=== PATIENT | male | born 1960 | race Caucasian/White ===

== ENCOUNTER 2020-10-16 05:48 | Day surgery (SDC) | payer BC, OTHER ==
[2020-10-12 12:16] VITALS: BMI 23.7
[~2020-10-16 05:48] MED LIST: ACETAMINOPHEN TAB 500 MG TAB PO PRN; DEXAMETHASONE SOD PHOSPHATE 4 MG/ML 1 ML VIAL IV ONE; MIDAZOLAM 2 MG/2 ML VIAL IV PRN; ONDANSETRON 4 MG/2 ML VIAL IVP ONE; SODIUM CHLORIDE 0.9% 100 ML BAG ONE; TRANEXAMIC ACID 1,000 MG/10 ML VIAL ONE
[2020-10-16] MEDS ORDERED: HEPARIN SODIUM,PORCINE 5,000 UNIT/ML 1 ML VIAL SQ PRN (06:00)
[2020-10-16 06:28] VITALS: TEMP 97.2
[2020-10-16] MEDS: LACTATED RINGERS 1,000 ML IV SCH ×2 (06:42→07:46)
[2020-10-16] MEDS ORDERED: fentaNYL (PF) 50 MCG/ML 2 ML AMP IVP PRN (07:00)
[2020-10-16] MEDS ORDERED: fentaNYL (PF) 50 MCG/ML 2 ML AMP IV PRN (07:00)
[2020-10-16] MEDS ORDERED: NEOSTIGMINE 1 MG/ML 10 ML VIAL ONE (07:49)
[2020-10-16] MEDS ORDERED: fentaNYL (PF) 50 MCG/ML 2 ML AMP ONE (07:49)
[2020-10-16] MEDS ORDERED: MIDAZOLAM 2 MG/2 ML VIAL ONE (07:49)
[2020-10-16] MEDS ORDERED: LIDOCAINE 1% INJ 10MG/ML (20 ML MDV) ONE (07:49)
[2020-10-16] MEDS ORDERED: GLYCOPYRROLATE 0.2 MG/ML 2 ML VIAL ONE (07:49)
[2020-10-16] MEDS ORDERED: ROCURONIUM 10 MG/ML (5 ML VIAL) IV ONE (07:49)
[2020-10-16] MEDS ORDERED: PROPOFOL 10 MG/ML 20 ML VIAL IV ONE (07:49)
[2020-10-16] MEDS ORDERED: SUCCINYLCHOLINE CHLORIDE 100 MG/5 ML SYR IV ONE (07:49)
[2020-10-16] MEDS ORDERED: BUPIVACAINE (PF) 0.25% 30 ML VIAL SQ ONE (08:09)
[2020-10-16] MEDS ORDERED: LACTATED RINGERS 1,000 ML IV ONE (09:16)
--- NOTE | 2020-10-16 09:36 | P.OP ---
Date of Procedure: 10/16/20 Procedure(s) Performed: PREOPERATIVE DIAGNOSIS: Left inguinal hernia POSTOPERATIVE DIAGNOSIS: Same, small umbilical hernia PROCEDURE: Laparoscopic repair left inguinal hernia with the da Theo robot assistance with mesh, repair umbilical hernia SURGEON: Sp EBL: Minimal ANESTHESIA: General COMPLICATIONS: None OPERATIVE PROCEDURE: Patient was placed in the operating table in the supine position. The patient was placed under general anesthesia. The abdomen was prepped and draped in usual sterile fashion. A small curvilinear supraumbilical incision was made. The fascia was retracted anteriorly with Alex forceps. The Veress needle was inserted. The saline drop test was normal. Insufflation took place to 15 mmHg. An 8 mm trocar was placed into the peritoneal cavity. 2 additional 8 mm trochars were placed in the right upper quadrant and left upper quadrant under visualization. The robotic arms were then brought in and docked into place. The fenestrated bipolar was used in the left arm and the laparoscopic naresh was utilized in the right arm. A 30 8 mm scope was used in the up position. The peritoneal cavity was inspected. The patient had an obvious indirect hernia on the left-hand side. This was medium sized. No hernia on the right was noted. The peritoneum was incised in a horizontal fashion cephalad to the internal inguinal ring. Following that careful dissection of the preperitoneal space took place. This took place using both electrocautery, sharp dissection but primarily blunt dissection. Visualization of the pubic tubercle and Cheo's ligament took place medially. Full dissection took place laterally as well. The hernia sac was fully dissected. Once we had adequate space the 15 x 10 progrip mesh was advanced into the preperitoneal space and flattened out appropriately to cover all potential hernia sites. No sutures were used. The peritoneal defect was then closed using a locking 2-0 VLok suture. The inverted hernia sac was incorporated into the peritoneal closure. There was a small defect in the peritoneum was closed using a short running 3-0 Vicryl stitch. The pneumoperitoneum was then evacuated. The patient had a small umbilical hernia present as well. There was a less than 1 cm piece of fat coming through a small defect at the base of the umbilicus. This was excised. The defect was then closed using a short running 0 Vicryl suture. The skin of all 3 sites was closed using a 4-0 Monocryl stitch. Skin glue was then applied. DISPOSITION: Stable to recovery room
[2020-10-16] MEDS: HYDROmorphone 0.5 MG/0.5 ML SYRINGE IVP PRN ×2 (09:50→09:55)
[2020-10-16 09:58] VITALS: RESP 16
[2020-10-16] MEDS ORDERED: ACETAMINOPHEN TAB 325 MG TAB PO SCH (12:00)
[2020-10-16] MEDS ORDERED: IBUPROFEN 600 MG TAB PO SCH (12:26)
[2020-10-16 12:48] VITALS: BP 135/79; PULSE 92
== END 2020-10-16 13:31 | disposition home or self-care (01) ==
LOC: OR 05:48
PROVIDERS: ATTEND Surgery
DX: K40.90 Unilateral inguinal hernia, without obstruction or gangrene, not specified as recurrent (principal); K42.9 Umbilical hernia without obstruction or gangrene; Z98.890 Other specified postprocedural states; Z82.61 Family history of arthritis
CPT/HCPCS: 49650; 49652; S2900

== ENCOUNTER 2021-06-12 07:54 | Day surgery (SDC) | payer BC ==
[2021-06-07 15:01] VITALS: BMI 23.7
[~2021-06-12 07:54] MED LIST changes: -ACETAMINOPHEN TAB 500 MG TAB PO PRN; -DEXAMETHASONE SOD PHOSPHATE 4 MG/ML 1 ML VIAL IV ONE; +LACTATED RINGERS 1,000 ML IV SCH; +LIDOCAINE 1% (10MG/ML) FOR IV START INTRADERMA PRN; -MIDAZOLAM 2 MG/2 ML VIAL IV PRN; -ONDANSETRON 4 MG/2 ML VIAL IVP ONE; -SODIUM CHLORIDE 0.9% 100 ML BAG ONE; -TRANEXAMIC ACID 1,000 MG/10 ML VIAL ONE
[2021-06-12 08:28] VITALS: TEMP 96.4
[2021-06-12] MEDS ORDERED: PROPOFOL 10 MG/ML 20 ML VIAL IV ONE (08:55)
[2021-06-12] MEDS ORDERED: LIDOCAINE 1% INJ 10MG/ML (20 ML MDV) ONE (08:55)
--- NOTE | 2021-06-12 09:01 | P.GSHP ---
History of Present Illness H&P Date: 06/12/21 Chief Complaint: Colon cancer screening 60-year-old male here today for colonoscopy. Last colonoscopy 6 years ago. Patient with family history of colon cancer in his aunt. No bowel complaints. No history of polyps. Past Medical History Past Medical History: No Reported History Additional Past Medical History / Comment(s): "mild constipation", History of Any Multi-Drug Resistant Organisms: None Reported Past Surgical History: Hernia Repair, Orthopedic Surgery Additional Past Surgical History / Comment(s): lt carpal tunnel, arthroscopy knee, colonoscopy, heel surgery to remove bone spur Past Anesthesia/Blood Transfusion Reactions: No Reported Reaction Smoking Status: Never smoker - Past Family History Father Family Medical History: Cancer Additional Family Medical History / Comment(s): lung Mother Family Medical History: Cancer Additional Family Medical History / Comment(s): breast Medications and Allergies Home Medications Medication Instructions Recorded Confirmed Type Stool Softner And Laxative Com 1 tab PO HS 06/07/21 06/07/21 History Vitamin Smoothy 1 applicate PO DAILY 06/07/21 06/07/21 History Allergies Allergy/AdvReac Type Severity Reaction Status Date / Time No Known Allergies Allergy Verified 06/07/21 14:53 Surgical - Exam Vital Signs Temp Pulse Resp BP Pulse Ox 96.4 F L 85 18 124/79 97 06/12/21 08:27 06/12/21 08:27 06/12/21 08:27 06/12/21 08:27 06/12/21 08:27 Physical exam: General: Well-developed, well-nourished HEENT: Normocephalic, sclerae nonicteric Abdomen: Nontender, nondistended Extremities: No edema Neuro: Alert and oriented Assessment and Plan (1) Colon cancer screening Narrative/Plan: Will proceed with colonoscopy at this time Current Visit: Yes Status: Acute Code(s): Z12.11 - ENCOUNTER FOR SCREENING FOR MALIGNANT NEOPLASM OF COLON SNOMED Code(s): 654451175
--- NOTE | 2021-06-12 09:21 | P.PCN ---
Date of Procedure: 06/12/21 Procedure(s) Performed: PREOPERATIVE DIAGNOSIS: Colon cancer screening POSTOPERATIVE DIAGNOSIS: Normal exam PROCEDURE: Colonoscopy ANESTHESIA: MAC SURGEON: William Snowden M.D. SPECIMENS: None ENDOSCOPIC PROCEDURE: The patient was placed on the endoscopy table in the left decubitus position. The Olympus colonoscope was inserted into the anus and passed under direct visualization to the base of the cecum. The appendiceal orifice was visualized. From that point the scope was slowly withdrawn inspecti ng all surfaces carefully. There were no neoplastic inflammatory or polypoid lesions throughout the cecum, ascending, transverse, descending, sigmoid and rectum. There was no visible diverticulosis noted. Digital rectal examination was normal. The patient was taken to the recovery room in stable condition per anesthesia guidelines. RECOMMENDATIONS: Resume diet. Follow colonoscopy in 10 years.
[2021-06-12 09:46] VITALS: BP 122/79; PULSE 72; RESP 20
== END 2021-06-12 10:04 | disposition home or self-care (01) ==
LOC: ORWHC2ENDO 07:54
PROVIDERS: ATTEND Surgery
DX: Z12.11 Encounter for screening for malignant neoplasm of colon (principal); K59.00 Constipation, unspecified; Z80.0 Family history of malignant neoplasm of digestive organs; Z98.890 Other specified postprocedural states; Z80.1 Family history of malignant neoplasm of trachea, bronchus and lung; Z80.3 Family history of malignant neoplasm of breast
CPT/HCPCS: J2001; J2704; G0121; 45378

== ENCOUNTER → 2023-08-21 | Outpatient (CLI) | payer BC | END | disposition home or self-care (01) | LOC: LABWHC1 13:42 | PROVIDERS: ATTEND Urology | DX: R97.20 Elevated prostate specific antigen [PSA] (principal) | CPT/HCPCS: 36415; 84153 ==

== ENCOUNTER → 2024-03-24 | Outpatient (CLI) | payer BC ==
--- NOTE | 2024-03-24 14:37 | US ---
EXAMINATION TYPE: US carotid duplex BILAT DATE OF EXAM: 03/24/2024 COMPARISON: NONE CLINICAL INDICATION: Male, 63 years old with history of E782, R9431; Hx High cholesterol; patient den ies any other signs, symptoms, or relevant history TECHNIQUE: Carotid duplex ultrasound examination. Indirect Doppler criteria was utilized. FINDINGS: EXAM MEASUREMENTS: RIGHT: Peak Systolic Velocity (PSV) cm/sec ----- Right CCA: 100 ----- Right ICA: 129 ----- Right ECA: 108 ICA/CCA ratio: 1.3 RIGHT: End Diastole cm/sec ----- Right CCA: 28 ----- Right ICA: 32 ----- Right ECA: 18 LEFT: Peak Systolic Velocity (PSV) cm/sec ----- Left CCA: 106 ----- Left ICA: 100 ----- Left ECA: 119 ICA/CCA ratio: 0.9 LEFT: End Diastole cm/sec ----- Left CCA: 31 ----- Left ICA: 31 ----- Left ECA: 25 VERTEBRALS (direction of flow): Right Vertebral: Antegrade Left Vertebral: Antegrade Rhythm: Normal EMERGENCY MEDICINE MEDICAL DIRECTOR NOTES: Unremarkable exam IMPRESSION: Less than 50% stenosis of bilateral carotid bifurcations by peak systolic velocity and ratio. Criteria for Assigning % of Stenosis / Diameter reduction (Estimation based on the indirect measurements of the internal carotid artery velocities (ICA PSV). 1. Normal (no stenosis)=ICA PSV < 125 cm/s: ratio < 2.0: ICA EDV<40 cm/s. 2. Less than 50% stenosis=ICA PSV < 125 cm/s: ratio < 2.0: ICA EDV<40 cm/s. 3. 50 to 69% stenosis=ICA PSV of 125 to 230 cm/s: ration 2.0 ? 4.0: ICA EDV 40-100 cm/s. 4. Greater than 70% stenosis to near occlusion= ICA PSV > 230 cm/s: ratio > 4.0: ICA EDV > 100 cm/s. 5. Near occlusion= ICA PSV velocities may be low or undetectable: variable ratio and ICA EDV. 6. Total occlusion=unable to detect flow.
--- NOTE | 2024-03-25 11:17 | CA ---
Transthoracic Echo Report Name: Frederick Cisneros Age: 63 Gender: M : 1960 Exam Date: 03/24/2024 12:51 Exam Location: [facility] Ht (in): 71 Wt (lb): 165 Ordering Physician: Jeremy Perry MD Attending/Referring Phys: JOHN, [facility] Intern Beverley Baeza RDCS Procedure CPT: Indications: R94.31 ABNORMAL ELECTROCARDIOGRAM; E78.2 MIXED HYP Cardiac Hx: Technical Quality: Fair Contrast 1: Total Dose (mL): Contrast 2: Total Dose (mL): MEASUREMENTS (Male / Female) Normal Values 2D ECHO LV Diastolic Diameter PLAX 4.1 cm 4.2 - 5.9 / 3.9 - 5.3 cm LV Systolic Diameter PLAX 2.6 cm IVS Diastolic Thickness 0.8 cm 0.6 - 1.0 / 0.6 - 0.9 cm LVPW Diastolic Thickness 0.9 cm 0.6 - 1.0 / 0.6 - 0.9 cm LV Relative Wall Thickness 0.4 LVOT Diameter 2.1 cm LV Diastolic Volume MOD BP 70.8 cm??? 67 - 155 / 56 - 104 cm??? LV Systolic Volume MOD BP 26.2 cm??? 22 - 58 / 19 - 49 cm??? LV Ejection Fraction MOD BP 62.9 % >= 55 % LV Cardiac Index MOD BP 1702.6 cm???/min???m??? LV Diastolic Volume MOD 4C 84.3 cm??? LV Systolic Volume MOD 4C 31.7 cm??? LV Ejection Fraction MOD 4C 62.4 % LV Cardiac Index MOD 4C 2007.5 cm???/min???m??? LV Diastolic Length 4C 8.7 cm LV Systolic Length 4C 8.0 cm LV Diastolic Volume MOD 2C 56.5 cm??? LV Systolic Volume MOD 2C 19.3 cm??? LV Ejection Fraction MOD 2C 65.9 % LV Cardiac Index MOD 2C 1421.0 cm???/min???m??? LV Diastolic Length 2C 8.2 cm LV Systolic Length 2C 7.0 cm LA Volume 26.8 cm??? 18 - 58 / 22 - 52 cm??? LA Volume Index 13.8 cm???/m??? 16 - 28 cm???/m??? DOPPLER AV Peak Velocity 100.5 cm/s AV Peak Gradient 4.0 mmHg AV Mean Velocity 73.9 cm/s AV Mean Gradient 2.4 mmHg AV Velocity Time Integral 20.1 cm LVOT Peak Velocity 110.9 cm/s LVOT Peak Gradient 4.9 mmHg LVOT Velocity Time Integral 22.8 cm LVOT Stroke Volume 78.2 cm??? LVOT Stroke Volume Index 40.2 ml/m??? LVOT Cardiac Index 2987.2 cm???/min???m??? AV Area Cont Eq vti 3.9 cm??? AV Area Cont Eq pk 3.8 cm??? MV Area PHT 3.3 cm??? Mitral E Point Velocity 53.2 cm/s Mitral A Point Velocity 52.4 cm/s Mitral E to A Ratio 1.0 MV Deceleration Time 229.8 ms FINDINGS Left Ventricle Left ventricular ejection fraction is estimated at 60 %. Left ventricular cavity size normal. Left ventricular wall thickness normal. No obvious regional wall motion abnormalities. Right Ventricle Normal right ventricular size and function. Unable to estimate the right ventricular systolic pressure. Right Atrium Normal right atrial size. Left Atrium Normal left atrial size. Mitral Valve Structurally normal mitral valve. No mitral stenosis, regurgitation or prolapse. Aortic Valve Trileaflet aortic valve. No aortic valve stenosis or regurgitation. Tricuspid Valve Structurally normal tricuspid valve. No tricuspid stenosis. No tricuspid regurgitation. Pulmonic Valve Pulmonic valve not well visualized. Pericardium No pericardial effusion. Aorta Aortic annulus normal. CONCLUSIONS . Normal LV size and systolic function. No significant abnormality on the Doppler exam. No pericardial effusion Previewed by: Dr. Hernán Ron MD (Electronically Signed) Final Date: 25 March 2024 11:17
== END | disposition home or self-care (01) ==
LOC: RADECHMAIN 12:45
PROVIDERS: ATTEND Internal Medicine
DX: R94.31 Abnormal electrocardiogram [ECG] [EKG] (principal); E78.2 Mixed hyperlipidemia; E78.00 Pure hypercholesterolemia, unspecified
CPT/HCPCS: 93306; 93880

== ENCOUNTER → 2024-03-25 | Outpatient (CLI) | payer BC | END | disposition home or self-care (01) | LOC: LABWHC1 07:09 | PROVIDERS: ATTEND Urology | DX: R97.20 Elevated prostate specific antigen [PSA] (principal) | CPT/HCPCS: 36415; 84153 ==